=== PATIENT | female | born 1945 | race African-American/Black ===

== ENCOUNTER 2020-11-14 05:46 | Inpatient (IN) | payer OTHER ==
[2020-11-09 14:54] VITALS: BMI 35.7
[2020-11-14] MEDS ORDERED: BUPIVACAINE LIPOSOME/PF (EXPAREL) 266 MG/20 ML VIAL ONE (07:05)
[2020-11-14] MEDS ORDERED: MIDAZOLAM HCL 2 MG/2 ML SINGLE DOSE VIAL ONE ×3 (07:05→09:32)
[2020-11-14] MEDS ORDERED: SODIUM CHLORIDE 0.9% P/F 10 ML VIAL IJ ONE (07:06)
[2020-11-14] MEDS ORDERED: VANCOMYCIN 1,000 MG VIAL (RESTRICTED TO ID ONLY) ONE (07:43)
[2020-11-14] MEDS ORDERED: ceFAZolin SODIUM 1 GM VIAL ONE (07:44)
[2020-11-14] MEDS ORDERED: TRANEXAMIC ACID 1000 MG/10 ML VIAL ONE ×3 (07:44→10:30)
[2020-11-14] MEDS ORDERED: DEXAMETHASONE SOD PHOSPHATE 4 MG/1 ML VIAL ONE (07:44)
[2020-11-14] MEDS ORDERED: LIDOCAINE HCL/PF 2% SDV 5ML VIAL ONE (07:44)
[2020-11-14] MEDS ORDERED: ONDANSETRON 4 MG/2 ML VIAL ONE (07:44)
[2020-11-14] MEDS ORDERED: SUCCINYLCHOLINE CHLORIDE 200 MG/10 ML SYRINGE ONE (07:45)
[2020-11-14] MEDS ORDERED: EPHEDRINE SULFATE/0.9% NACL/PF 50 MG/10 ML SYRINGE NR ONE (07:45)
[2020-11-14] MEDS ORDERED: PROPOFOL 20 ML ONE (07:45)
[2020-11-14] MEDS ORDERED: BUPIVICAINE 0.25%/MORPH PF/KETOROLAC - 51ML DISP.SYRINGE IA ONE ×2 (07:59→10:32)
[2020-11-14] MEDS ORDERED: ONDANSETRON 4 MG/2 ML VIAL IVPUSH PRN (11:15)
[2020-11-14] MEDS ORDERED: LACTATED RINGERS SOLUTION 1,000 ML IV SCH (11:15)
[2020-11-14] MEDS ORDERED: MAG HYDROX/AL HYDROX/SIMETH 30 ML UNIT-DOSE CUP PO PRN (11:15)
[2020-11-14] MEDS: ACETAMINOPHEN 325 MG TABLET (FP) PO SCH ×2 (12:45→18:10)
[2020-11-14] MEDS: CEFAZOLIN 2 GM/D5W 2 GM/50 ML ML IVPB SCH (16:09)
[2020-11-14] MEDS: oxyCODONE HCL 5 MG TABLET PO PRN ×2 (16:14→22:34)
[2020-11-14] MEDS ORDERED: ALBUTEROL SO4 HFA INHALER IH PRN (18:16)
[2020-11-14] MEDS: SENNOSIDES/DOCUSATE COMBO (SENNA PLUS) TABLET (UD) PO SCH (21:18)
[2020-11-14] MEDS: ATORVASTATIN CA 10 MG TABLET (FP) PO SCH (21:18)
[2020-11-14] MEDS: GABAPENTIN 300 MG CAPSULE PO SCH (21:18)
[2020-11-14] MEDS: BUDESONIDE/FORMETEROL FUMARATE 80/4.5 mcg INHALER IH SCH (22:35)
[2020-11-15] MEDS: CEFAZOLIN 2 GM/D5W 2 GM/50 ML ML IVPB SCH ×2 (00:03→08:34)
[2020-11-15] MEDS: ACETAMINOPHEN 325 MG TABLET (FP) PO SCH ×4 (00:03→19:09)
[2020-11-15] MEDS: oxyCODONE HCL 5 MG TABLET PO PRN ×4 (01:42→21:06)
[2020-11-15 07:52] LABS: CALCIUM 8.6 mg/dl (8.5-10); HEMATOCRIT 35.6 % (32.4-45.2); HEMOGLOBIN 11.2 GM/dl (10.7-15.3); MCH 25.3 pg (25.7-33.7); MCHC 31.5 g/dl (32.0-36.0); MEAN CELL VOLUME 80.1 fl (80-96); MEAN PLT VOLUME 8.3 fl (7.5-11.1); PLATELET COUNT 351 K/MM3 (134-434); POTASSIUM 4.7 mmol/L (3.5-5.1); RBC 4.44 M/mm3 (3.60-5.2); RDW 15.5 % (11.6-15.6); WHITE BLOOD COUNT 8.3 K/mm3 (4.0-10.8)
[2020-11-15] MEDS: SENNOSIDES/DOCUSATE COMBO (SENNA PLUS) TABLET (UD) PO SCH ×2 (09:35→21:05)
[2020-11-15] MEDS: ASPIRIN 325 MG TABLET PO SCH ×2 (09:35→21:05)
[2020-11-15] MEDS: GABAPENTIN 300 MG CAPSULE PO SCH ×2 (09:35→21:05)
[2020-11-15] MEDS: amLODIPine BESYLATE 2.5 MG TABLET (FP) PO SCH (09:36)
[2020-11-15] MEDS: PANTOPRAZOLE 40 MG TABLET PO SCH (09:36)
[2020-11-15] MEDS: MULTIVITAMINS (DAILY MVI) TABLET (FP) PO SCH (09:36)
[2020-11-15] MEDS: BUDESONIDE/FORMETEROL FUMARATE 80/4.5 mcg INHALER IH SCH ×2 (09:36→21:06)
[2020-11-15] MEDS: ATORVASTATIN CA 10 MG TABLET (FP) PO SCH (21:05)
[2020-11-16] MEDS: ACETAMINOPHEN 325 MG TABLET (FP) PO SCH ×3 (00:01→14:45)
[2020-11-16] MEDS: oxyCODONE HCL 5 MG TABLET PO PRN ×2 (06:42→09:39)
[2020-11-16 07:37] LABS: HEMATOCRIT 33.7 % (32.4-45.2); HEMOGLOBIN 10.8 GM/dl (10.7-15.3); MCH 25.4 pg (25.7-33.7); MEAN CELL VOLUME 79.2 fl (80-96); MEAN PLT VOLUME 8.1 fl (7.5-11.1); PLATELET COUNT 318 K/MM3 (134-434); RBC 4.26 M/mm3 (3.60-5.2); RDW 15.2 % (11.6-15.6); WHITE BLOOD COUNT 10.8 K/mm3 (4.0-10.8)
[2020-11-16] MEDS: SENNOSIDES/DOCUSATE COMBO (SENNA PLUS) TABLET (UD) PO SCH (09:40)
[2020-11-16] MEDS: amLODIPine BESYLATE 2.5 MG TABLET (FP) PO SCH (09:41)
[2020-11-16] MEDS: PANTOPRAZOLE 40 MG TABLET PO SCH (09:41)
[2020-11-16] MEDS: GABAPENTIN 300 MG CAPSULE PO SCH (09:41)
[2020-11-16] MEDS: ASPIRIN 325 MG TABLET PO SCH (09:41)
[2020-11-16] MEDS: MULTIVITAMINS (DAILY MVI) TABLET (FP) PO SCH (10:11)
[2020-11-16] MEDS: BUDESONIDE/FORMETEROL FUMARATE 80/4.5 mcg INHALER IH SCH (10:12)
[2020-11-16 14:11] VITALS: BP 121/53; PULSE 98; TEMP 98.3
== END 2020-11-16 15:22 | disposition home or self-care (01) | DRG 470 ==
LOC: FM/S 05:46
PROVIDERS: ADMIT Orthopaedic Surgery Sports Medicine; ATTEND Nurse Practitioner Acute Care
PROC: 0SRC0JZ Replacement of Right Knee Joint with Synthetic Substitute, Open Approach (ICD-10-PCS; principal; 2020-11-14 08:39)
DX: M17.11 Unilateral primary osteoarthritis, right knee (principal); I10 Essential (primary) hypertension; E78.5 Hyperlipidemia, unspecified; J44.9 Chronic obstructive pulmonary disease, unspecified; E11.9 Type 2 diabetes mellitus without complications
CPT/HCPCS: 36415; 73560-TC-RT-FY; 80048; 85027; 88305-TC; 88311-TC; 94760; 97010-GP; 97116-GP; 97162-GP

== ENCOUNTER 2023-01-21 06:59 | Day surgery (SDC) | payer OTHER ==
[2023-01-18 16:04] VITALS: BMI 36.1
[~2023-01-21 06:59] MED LIST: CEFAZOLIN 2 GM in DEXTROSE 5%-WATER - 50 ML IVPB ONE; VANCOMYCIN 1 GM/200 ML PREMIX BAG (RESTRICTED TO ID ONLY) IVPB ONE
[2023-01-21] MEDS ORDERED: DEXAMETHASONE SOD PHOSPHATE 4 MG/1 ML VIAL ONE (07:03)
[2023-01-21] MEDS ORDERED: LIDOCAINE HCL/PF 2% SDV 5ML VIAL ONE (07:03)
[2023-01-21] MEDS ORDERED: ceFAZolin SODIUM 1 GM VIAL ONE (07:03)
[2023-01-21] MEDS ORDERED: ONDANSETRON 4 MG/2 ML VIAL ONE (07:03)
[2023-01-21] MEDS ORDERED: MIDAZOLAM HCL 2 MG/2 ML SINGLE DOSE VIAL ONE (07:04)
[2023-01-21] MEDS ORDERED: ROCURONIUM BROMIDE 50 MG/5 ML SYRINGE ONE (07:04)
[2023-01-21] MEDS ORDERED: PROPOFOL 20 ML ONE (07:04)
[2023-01-21] MEDS ORDERED: VANCOMYCIN 1,000 MG VIAL (RESTRICTED TO ID ONLY) ONE (07:07)
[2023-01-21] MEDS ORDERED: ROPIVACAINE HCL 0.5% 30ML VIAL ONE (07:12)
[2023-01-21] MEDS ORDERED: TRANEXAMIC ACID 1000 MG/10 ML VIAL IVPUSH ONE (07:30)
[2023-01-21] MEDS ORDERED: ONDANSETRON 4 MG/2 ML VIAL IVPUSH PRN (07:31)
[2023-01-21] MEDS ORDERED: oxyCODONE HCL 5 MG TABLET PO PRN (07:33)
[2023-01-21] MEDS ORDERED: ACETAMINOPHEN 325 MG TABLET (FP) PO PRN ×4 (07:35→18:30)
[2023-01-21] MEDS ORDERED: LACTATED RINGERS SOLUTION 1,000 ML IV SCH (07:45)
[2023-01-21] MEDS ORDERED: NEOSTIGMINE METHYLSULFATE 0.5 MG/1 ML - 10 ML MDV ONE (10:00)
[2023-01-21] MEDS ORDERED: GLYCOPYRROLATE 0.2 MG/1 ML VIAL ONE ×3 (10:00)
[2023-01-21] MEDS ORDERED: KETOROLAC TROMETHAMINE 30 MG/1 ML VIAL IVPUSH ONE (12:06)
[2023-01-21] MEDS ORDERED: ACETAMINOPHEN 1000 MG/100 ML BAG IVPB ONE (12:06)
[2023-01-21] MEDS ORDERED: KETOROLAC TROMETHAMINE 30 MG/1 ML VIAL IVPUSH PRN (12:09)
[2023-01-21] MEDS ORDERED: FENTANYL CITRATE/PF 50 MCG/ML VIAL ONE (12:33)
[2023-01-21] MEDS ORDERED: ALBUTEROL SO4 HFA INHALER IH PRN (14:58)
[2023-01-21] MEDS ORDERED: PATIENT'S OWN MEDICATION (NON-FORMULARY) (Fluticasone Propion/Salmeterol [Fluticasone-Salm IH PRN (14:58)
[2023-01-21] MEDS ORDERED: ALBUTEROL SO4 0.083% IH SOL 2.5 MG/3 ML VIAL.NEB. NEB PRN (14:58)
[2023-01-21] MEDS ORDERED: ceFAZolin 2 GRAM PREMIX BAG IVPB SCH (17:20)
[2023-01-21] MEDS: CEFAZOLIN SODIUM 2 GM in DEXTROSE 5%-WATER 100 ML IVPB SCH (17:20)
[2023-01-21] MEDS: oxyCODONE HCL 5 MG TABLET PO PRN (21:09)
[2023-01-21] MEDS: BUDESONIDE/FORMETEROL FUMARATE 80/4.5 mcg INHALER IH SCH (21:10)
[2023-01-21] MEDS: ACETAMINOPHEN 325 MG TABLET (FP) PO PRN (21:10)
[2023-01-21] MEDS ORDERED: VANCOMYCIN 1 GM/200 ML PREMIX BAG (RESTRICTED TO ID ONLY) IVPB ONE (22:00)
[2023-01-21] MEDS ORDERED: ATORVASTATIN CA 10 MG TABLET (FP) PO SCH (22:00)
[2023-01-21] MEDS ORDERED: amLODIPine BESYLATE 5 MG TABLET (FP) PO SCH (22:00)
[2023-01-22] MEDS: CEFAZOLIN SODIUM 2 GM in DEXTROSE 5%-WATER 100 ML IVPB SCH (01:08)
[2023-01-22] MEDS: oxyCODONE HCL 5 MG TABLET PO PRN ×2 (05:33→15:00)
[2023-01-22] MEDS: ACETAMINOPHEN 325 MG TABLET (FP) PO PRN (05:33)
[2023-01-22 06:24] VITALS: RESP 18
[2023-01-22] MEDS: BUDESONIDE/FORMETEROL FUMARATE 80/4.5 mcg INHALER IH SCH (09:15)
[2023-01-22 09:46] LABS: HEMATOCRIT 34.3 % (32.4-45.2); HEMOGLOBIN 11.1 G/dL (10.7-15.3); MCH 26.1 pg (25.7-33.7); MCHC 32.2 g/dl (32.0-36.0); MEAN CELL VOLUME 81.1 fl (80-96); MEAN PLT VOLUME 8.6 fl (7.5-11.1); PLATELET COUNT 304.8 10^3/uL (134-434); RBC 4.23 10^6/uL (3.60-5.2); RDW 17.2 % (11.6-15.6); WHITE BLOOD COUNT 11.4 10^3/uL (4.0-10.8)
[2023-01-22 09:50] LABS: CALCIUM 8.4 mg/dl (8.5-10); CREATININE 0.9 mg/dl (0.55-1.3); POTASSIUM 3.6 mmol/L (3.5-5.1)
[2023-01-22] MEDS ORDERED: ASCORBIC ACID 500 MG TABLET (FP) PO SCH (10:00)
[2023-01-22] MEDS ORDERED: ASPIRIN 325 MG TABLET PO SCH (10:00)
[2023-01-22] MEDS ORDERED: HYDROCHLOROTHIAZIDE 25 MG TABLET (FP) PO SCH (10:00)
[2023-01-22 13:30] VITALS: BP 105/42; PULSE 96; TEMP 98.7
== END 2023-01-22 15:36 | disposition home or self-care (01) ==
LOC: FASUSAT 06:59 → EDSTATUS 08:00 → FM/S 13:53 → FASUSAT 01-22 15:36
PROC: 0LS30ZZ Reposition Right Upper Arm Tendon, Open Approach (ICD-10-PCS; 2023-01-21)
PROC: 0RUJ0JZ Supplement Right Shoulder Joint with Synthetic Substitute, Open Approach (ICD-10-PCS; principal; 2023-01-21 09:36)
DX: M19.011 Primary osteoarthritis, right shoulder (principal); M75.101 Unspecified rotator cuff tear or rupture of right shoulder, not specified as traumatic; M75.21 Bicipital tendinitis, right shoulder
CPT/HCPCS: 36415; 73030-TC-RT-FY; 80048; 85027; 87426; 88305-TC; 88311-TC; 94760; C1713; C1776

== ENCOUNTER 2024-09-15 04:27 | Day surgery (SDC) | payer OTHER ==
[2024-09-11 16:53] VITALS: BMI 35.2
[2024-09-15] MEDS ORDERED: MIDAZOLAM HCL 2 MG/2 ML SINGLE DOSE VIAL ONE (10:49)
[2024-09-15] MEDS ORDERED: PROPOFOL 20 ML ONE (11:19)
[2024-09-15] MEDS ORDERED: ACETAMINOPHEN INJECTION 100 ML ONE (11:21)
[2024-09-15] MEDS ORDERED: LIDOCAINE HCL/PF 2% SDV 5ML VIAL ONE (11:53)
[2024-09-15] MEDS ORDERED: oxyCODONE HCL 5 MG TABLET PO PRN (12:29)
[2024-09-15] MEDS ORDERED: ONDANSETRON 4 MG/2 ML VIAL IVPUSH PRN (12:29)
[2024-09-15] MEDS ORDERED: LACTATED RINGERS SOLUTION 1,000 ML IV SCH (12:30)
[2024-09-15 15:18] VITALS: RESP 20
[2024-09-15 16:47] VITALS: BP 139/64; PULSE 56; TEMP 96.9
== END 2024-09-15 15:15 | disposition home or self-care (01) ==
LOC: JASU-SURG 04:27
PROVIDERS: ATTEND Obstetrics & Gynecology
PROC: 0UDB8ZX Extraction of Endometrium, Via Natural or Artificial Opening Endoscopic, Diagnostic (ICD-10-PCS; principal; 2024-09-15 11:00)
DX: N85.00 Endometrial hyperplasia, unspecified (principal)
CPT/HCPCS: 86850; 86900; 86901; 88305-TC; 94760; J0131